=== PATIENT | male | born 1975 | race Caucasian/White ===

== ENCOUNTER 2020-06-30 10:28 | Emergency (ER) | payer BC, SELFPAY ==
--- NOTE | 2020-06-30 10:43 | ED.GENADULT ---
HPI - General Adult General Chief complaint: Eye Problems Stated complaint: Eye problem Time Seen by Provider: 06/30/20 10:50 Source: patient and RN notes reviewed Mode of arrival: ambulatory Limitations: no limitations History of Present Illness HPI narrative: 45 year old male presents to express care with complaints of pain to right eye with crusting, drainage,increase watering and redness under right eye with swelling present. Patient describes his pain as burning and stinging, rates his pain as 6/10. Patient states that he has increase tearing and he noted crusty drainage on lower eyelid today. Patient states that he has been using Systane eye drops to his right eye. Patient states that he thinks it is a reaction from having his COVID vaccine, denies experiencing any shortness of breath, rash or itching after vaccine.. Raised red area noted to internal region of medial lower lid, no blister noted, with swelling to lower lid and under right eye. MD complaint: right eye Onset (ago): day(s) (3 days) Location: eyes (right) Radiation: non-radiation Severity: moderate Severity scale (1-10): 6 Quality: burning Pain Consistency: constant Relieving factors: none Associated symptoms: denies other symptoms Treatments prior to arrival: cold therapy and other (systane eye gtts) Related Data Home Medications Medication Instructions Recorded Confirmed metformin 50 mg PO PRN 06/30/20 06/30/20 Allergies Allergy/AdvReac Type Severity Reaction Status Date / Time No Known Allergies Allergy Verified 06/30/20 11:05 Review of Systems Review of Systems: Narrative: CONSTITUTIONAL: Denies fever, chills, or sweats. EYES: Denies visual changes, positive for swelling under right eye with redness, increase tearing with some exudate noted on lashes this morning. ENT: Denies rhinorrhea, congestion, sore throat, or otalgia. CARDIOVASCULAR: Denies chest pain, palpitations, or edema. RESPIRATORY: Denies cough or dyspnea. GASTROINTESTINAL: Denies abdominal pain, nausea, vomiting, or diarrhea. GENITOURINARY: Denies dysuria or hematuria. SKIN: Denies rash or itching. MUSCULOSKELETAL: Denies back pain, joint pain, or myalgia. NEUROLOGIC: Denies headache, numbness, or weakness. PSYCHIATRIC: Denies anxiety or depression. All systems reviewed & are unremarkable except as noted in HPI and below PMFSH Past Medical History Medical History (Updated 07/02/20 @ 13:58 by Aby Pierre NP) Diabetes mellitus JOANNA (obstructive sleep apnea) Surgical History Surgical History (Updated 06/30/20 @ 12:08 by Aby Pierre NP) No history of previous surgery Family History Family History (Updated 06/30/20 @ 12:08 by Aby Pierre NP) Grandparent Hypertension Diabetes mellitus Cerebrovascular accident Social History Social History (Updated 07/02/20 @ 14:02 by Aby Pierre NP) Smoking packs per day: 1 Smoking cigarettes per day: 20.0 Years smoked: 10 Smoking pack-years: 10.00 Smoking status: Former smoker Alcohol intake: current Alcohol use details: rare social Substance use: never Living arrangements: with family Gender identity (if verbalized by the patient): Male Comments At time of signature, agree with nursing past medical, surgical, social and family history. There is no relevant family history pertinent to the presenting complaint Exam Narrative: Exam Narrative: GENERAL: Well-appearing, well-nourished, and in no acute distress. HEAD: Normocephalic, atraumatic. EYES: PERRLA and EOMI.swelling under right eye with redness of right eye inner lower lid, raised red area on inner lower eyelid medial aspect, visual acuity 20/50 right eye, 20/40 left eye without corrective lens, denies any photophobia or vision changes. voices burning and stinging discomfort, no pustule lesions noted. ENT: Nares clear, no rhinorrhea or epistaxis. Mucous membranes moist.TM's normal with good light reflex,throat pink with no exud
[2020-06-30 10:48] VITALS: BP 145/80; PULSE 67; RESP 14; TEMP 37; O2SAT 99
[2020-06-30 11:06] VITALS: BP 145/80; PULSE 67; RESP 14; TEMP 37; O2SAT 99
== END 2020-06-30 11:15 | disposition home or self-care (01) ==
PROVIDERS: Emergency Provider Registered Nurse; PCP Family Medicine
DX: H00.022 Hordeolum internum right lower eyelid (principal); Z87.891 Personal history of nicotine dependence; E11.9 Type 2 diabetes mellitus without complications; G47.33 Obstructive sleep apnea (adult) (pediatric)
CPT/HCPCS: 99213; G0463

== ENCOUNTER 2024-05-25 09:31 | Outpatient (CLI) | payer BC, SELFPAY ==
--- NOTE | ~2024-05-25 | XR_ITS ---
EXAMINATION: XR abdomen obstructive series DATE: 05/25/2024 10:12 INDICATION: Unspecified abdominal pain. TECHNIQUE: Upright and supine views of the abdomen on 4 radiographs were obtained. COMPARISON: CT abdomen 10/22/2004 FINDINGS: There are no dilated loops of bowel. There is a moderate volume of stool in colon. Calcific ations in the pelvis are likely phleboliths. There are calcifications overlying the kidneys measuring up to 7 mm on the right that may be stones. IMPRESSION: 1. Normal bowel gas pattern. 2. Bilateral kidney stones. Reviewed, dictated and finalized at location A. [employer]
== END 2024-05-25 09:32 | disposition home or self-care (01) ==
LOC: GOSHIMG 09:34
PROVIDERS: PCP Nurse Practitioner; Visit Provider Nurse Practitioner
DX: R10.9 Unspecified abdominal pain (principal); N20.0 Calculus of kidney
CPT/HCPCS: 74019